=== PATIENT | male | born 1970 | race Caucasian/White ===

== ENCOUNTER 2017-01-13 07:52 | Outpatient (CLI) ==
[2016-05-13 11:57] VITALS: BMI 24.6
--- NOTE | 2017-01-13 09:33 | MRI ---
EXAM: MRI lumbar spine without IV contrast. DATE: 01/13/2017. HISTORY: Low back pain. TECHNIQUE: Sagittal and axial T1W and T2W sequences of the lumbar spine along with sagittal IR and coronal T2W sequences were obtained using 1.2 Karen magnet. No IV contrast. COMPARISON: LS spine series 01/12/2008. CT abdomen/pelvis 05/13/2016. FINDINGS: There are five [id number] lumbar vertebra. There is no lumbar scoliosis. No acute lumbar fracture, subluxation, osseous malignancy, or pars interarticularis defect is identified. Ivette mbar vertebra are normal in height. Bone marrow signal is normal. Lumbar intervertebral discs are normal in height. No sacral fracture or stress reaction is apparent. SI joints are unremarkable. Conus medullaris terminates at L1-2. Visible spinal cord is normal. No retroperitoneal lymphadenopathy, paraspinal mass, or aortic aneurysm is detected. Small anterior osteophytes at each SI joint suggest minor arthritis. Right lobe liver measures greater than 17 cm in length. Visible portions of the liver, spleen, adrenal glands kidneys reveal no malignancy. Ther e is no hydronephrosis. Segmental analysis: T12-L1: Normal. L1-2: Normal. L2-3: Minor posterior to foraminal disc bulge and minor facet arthropathy cause triangulation of th e canal and slight bilateral inferior foraminal encroachment. L3-4: Minor concentric disc bulge and minor facet arthropathy cause triangulation of the canal and mild bilateral foraminal stenoses. L4-5: Small posterior to foraminal disc bulge, mild facet arthropathy, and mild ligamentum flavum h ypertrophy cause triangulation of the canal, mild right foraminal stenosis, and moderate left forami nal stenosis. Left L4 nerve root contacts the disc bulge near the lateral margin of the foramen. L5-S1: Broad posterior to foraminal disc bulge and minor facet arthropathy cause triangulation of t he canal and mild to moderate bilateral foraminal stenoses. Each L5 nerve root contacts the disc bu lge at the foramen. IMPRESSIONS: 1. Lumbar spine mild facet arthropathy and mild disc bulges. 2. Triangulation of the canal at L2-3, L3-4, L4-5, and L5-S1. 3. Multilevel foraminal stenosis. Left L4 and both L5 nerve roots contact disc bulges near the for amen, and could be sources for pain/radiculopathy. 4. 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
== END 2017-01-13 07:53 | disposition home or self-care (01) ==
LOC: RAD 07:52
PROVIDERS: ATTEND Family Medicine
DX: M54.5 Low back pain (principal); G89.29 Other chronic pain

== ENCOUNTER 2019-04-23 13:40 | Emergency (ER) ==
[2019-04-23 13:55] VITALS: BP 122/80; TEMP 98; BMI 24.7
[2019-04-23] MEDS ORDERED: SODIUM CHLORIDE 1,000 ML IV STA (15:13)
--- NOTE | 2019-04-23 16:25 | CT ---
EXAM: CT of the abdomen pelvis with contrast History: Left lower quadrant abdominal pain, history of appendectomy and gastric bypass. Comparison: CT abdomen pelvis 05/13/2016 Technique: Multiplanar CT images through the abdomen pelvis were obtained following administration o f IV contrast Findings: Lung bases are clear. No acute osseous abnormalities. Status post cholecystectomy. No focal liver or splenic lesions. Postsurgical changes of gastric byp ass. No bowel obstruction. Pancreas is within normal limits. Adrenal glands are normal. No renal masses and no hydronephrosis. No free air and no ascites. Mild circumferential wall thickening of t he bladder. Prostate is not enlarged. No perirectal inflammation. No abdominal aortic aneurysm. N o pathologically enlarged lymph nodes. Impression: 1. Postsurgical changes of gastric bypass. No evidence for bowel obstruction. 2. Mild circumferential bladder wall thickening. Correlate with urinalysis for possible cystitis.
--- NOTE | 2019-04-23 16:57 | ED.PDOC ---
General ED Provider: Dr. GENNA CEDEÑO Chief Complaint: Abdominal Pain Stated Complaint: ABDOMINAL PAIN LLQ SPASAM LIKE X MONTHS Time Seen by Physician: 13:45 Mode of Arrival: Walk-In Information Source: Patient Exam Limitations: No limitations Primary Care Provider: DANN RUDOLPH Nursing and Triage Documentation Reviewed and Agree: Yes Does patient meet sepsis criteria?: No System Inflammatory Response Syndrome: Not Applicable Sepsis Protocol: For patient's 13 years and over: Temp is 96.8 and below OR 101 and greater Pulse >90 BPM Resp >20/minute Acutely Altered Mental Status Are patient's symptoms suggestive of a new infection, such as: -Pneumonia -Skin, Soft Tissue -Endocarditis -UTI -Bone, Joint Infection -Implantable Device -Acute Abdominal Infection -Wound Infection -Meningitis -Blood Stream Catheter Infection -Unknown GI Complaint Exam - Abdominal Pain Complaint/Exam Onset: Gradual Duration: MONTHS Symptoms Are: Still present Timing: Intermittent Initial Severity: Mild Current Severity: Mild Location of Pain: LLQ (W/O EXTENSION TO THE BACK NO N,V,D BLACK OR BLOODY STOOLS NO WEIGHT LOSS) Radiates To: Denies: Chest, Back, Flank, LLQ, RLQ, Inguinal Character: Reports: Dull Aggravating: Reports: None Alleviating: Reports: None Associated Signs and Symptoms: Denies: Diaphoresis, Fever, Cough, Chest pain, Dizziness, Back pain, Constipation, Blood in stool, Dysuria, Urinary frequency, Decreased urine output, Decreased appetite, Discharge, Nausea, Vomiting, Diarrhea, Decreased activity Related History: Reports: Similar episode AAA Risk Factors: Reports: None Cardiac Risk Factors: Reports: None Testicular Torsion Risk Factors: Reports: None Surgical Obstruction Risk Factors: Reports: None Related Surgical History: Reports: None Abdominal Findings: Present: None Review of Systems - Review Of Systems Constitutional: Reports: No symptoms Eyes: Reports: No symptoms Ears, Nose, Mouth, Throat: Reports: No symptoms Respiratory: Reports: No symptoms Cardiac: Reports: No symptoms GI: Reports: Abdominal pain : Reports: No symptoms Musculoskeletal: Reports: No symptoms Skin: Reports: No symptoms Neurological: Reports: No symptoms Endocrine: Reports: No symptoms Hematologic/Lymphatic: Reports: No symptoms All Other Systems: Reviewed and Negative Past Medical History - Past Medical History Previously Healthy: Yes Endocrine: Reports: None Cardiovascular: Reports: None Respiratory: Reports: None Hematological: Reports: None Gastrointestinal: Reports: GERD Genitourinary: Reports: None Neuro/Psych: Reports: Anxiety Musculoskeletal: Reports: None Cancer: Reports: None - Surgical History General Surgical History: Reports: Gastric Bypass - Family History Family History: Reports: Unknown - Social History Smoking Status: Never smoker Hx Substance Use: No Alcohol Screening: Occasionally Physical Exam - Physical Exam Appearance: Well-appearing, No pain distress, Well-nourished Eyes: DOLLY, EOMI, Conjunctiva clear ENT: Ears normal, Nose normal, Oropharynx normal Respiratory: Airway patent, Breath sounds clear, Breath sounds equal, Respirations nonlabored Cardiovascular: RRR, Pulses normal, No rub, No murmur GI/: Soft, Nontender, No masses, Bowel sounds normal, No Organomegaly Musculoskeletal: Normal strength, ROM intact, No edema, No calf tenderness Skin: Warm, Dry, Normal color Neurological: Sensation intact, Motor intact, Reflexes intact, Cranial nerves intact, Alert, Oriented Psychiatric: Affect appropriate, Mood appropriate Critical Care Note - Critical Care Note Total Time (mins): 0 Course - Course Hematology/Chemistry: 04/23/19 15:28 04/23/19 15:28 Orders, Labs, Meds: Lab Review 04/23/19 04/23/19 15:28 15:28 WBC 6.93 RBC 4.83 Hgb 14.1 Hct 43.2 MCV 89.4 MCH 29.2 MCHC 32.6 RDW Coeff of Anaid 14.1 Plt Count 186 Immature Gran % (Auto) 0.4 Neut % (Auto) 45.2 Lymph % (Auto) 32.9 [place] % (Auto) 8.7 Eos % (Auto) 11.4 H Baso % (Auto) 1.4 Immature Gran # (Auto) 0.0 Neut # (Auto) 3.1 Lymph # (Auto) 2.3 [place] # (Auto) 0.6 Eos # (Auto) 0.8 H Baso # (Auto) 0.1 Sodium 139.4 Potassium 4.30 Chloride 102.8 Carbon Dioxide 28.8 Anion Gap 12.10 BUN 12.7 Creatinine 0.73 Estimated GFR (MDRD) 114.00 BUN/Creatinine Ratio 17.39 Glucose 92.5 Calcium 8.97 Total Bilirubin 0.79 AST 37.1 ALT 29.8 Alkaline Phosphatase 58.7 Total Protein 7.19 Albumin 4.15 Globulin 3.04 Albumin/Globulin Ratio 1.36 Amylase 58.3 Lipase 39.8 Orders Category Date Time Status NPO REMINDER: IMAGING ONCE CARE 04/23/19 15:13 Completed ED IV/MEDIPORT/POWERPORT .ONCE EMERGENCY 04/23/19 15:13 Active AMYLASE Stat LAB 04/23/19 15:28 Completed CBC W/ AUTO DIFF Stat LAB 04/23/19 15:28 Completed COMPREHENSIVE METABOLIC PANEL Stat LAB 04/23/19 15:28 Completed LIPASE Stat LAB 04/23/19 15:28 Completed URINALYSIS C & S IF INDICATED Stat LAB 04/23/19 15:13 Uncollected 0.9 % Sodium Chloride [Saline Flush] MEDS 04/23/19 15:12 Active 1 syr IVF PRN PRN Sodium Chloride 0.9% [Sodium Chloride] 1,000 ml MEDS 04/23/19 15:13 Active IV 250 mls/hr CT ABDOMEN/PELVIS W CONTRAST Stat RADS 04/23/19 15:13 Completed Medications Generic Name Dose Route Start Last Admin Trade Name Freq PRN Reason Stop Dose Admin Sodium Chloride 1,000 mls @ 250 mls/hr 04/23/19 15:13 04/23/19 15:54 Sodium Chloride IV 04/23/19 19:12 250 mls/hr .Q4H STA Administration Sodium Chloride 1 syr 04/23/19 15:12 Saline Flush IVF PRN PRN To flush IV Vital Signs: Temp Pulse Resp BP Pulse Ox 04/23/19 13:41 98.0 F 80 18 122/80 98 Departure - Departure Time of Disposition: 16:57 Disposition: HOME SELF-CARE Discharge Problem: Abdominal pain Instructions: Abdominal Pain (ED) Condition: Good Pt referred to PMD for follow-up: Yes IPMP verified?: No Additional Instructions: Please call your Family Physician as soon as possible to schedule a follow-up appointment. Allergies/Adverse Reactions: Allergies No Known Allergies Allergy (Verified 04/11/18 14:20) Home Medications: Ambulatory Orders Alprazolam [Xanax] 0.25 mg PO TID PRN 10/02/14 Omeprazole [Prilosec] 20 mg PO EVERY OTHER DAY 10/02/14 Ferrous Sulfate 325 mg PO TID 10/11/14 Disposition Discussed With: Patient
== END 2019-04-23 17:40 | disposition home or self-care (01) ==
LOC: ED 13:40
DX: R10.32 Left lower quadrant pain (principal); Z98.84 Bariatric surgery status
CPT/HCPCS: 36415; 80053; 82150; 83690; 85025; 96360; 99283